=== PATIENT | female | born 1980 | race Two or more races ===

== ENCOUNTER 2018-03-28 20:46 | Emergency (ER) | payer MEDICAID ==
[~2018-03-28] VITALS: Ht 162.6 cm; Wt 61.2 kg
[2018-03-28 21:04] VITALS: BP 105/72
[2018-03-28 22:06] LABS: Basophils # (auto) 0.1 uL; Basophils % (auto) 0.6 % (0.0-2.0); Eosinophils # (auto) 0.1 uL; Eosinophils % (auto) 1.1 % (0.0-7.0); Hemoglobin 14.2 g/dL (12.2-16.2); Lymphocytes # (auto) 2.9 uL; Lymphocytes % (auto) 28.5 % (10.0-50.0); Mean Corpuscular Hemoglobin 33.6 pg (28.0-32.0); Mean Corpuscular Hgb Conc. 34.7 g/dL (32.0-36.0); Mean Corpuscular Volume 96.7 fL (80.0-100.0); Monocytes # (auto) 0.9 uL; Monocytes % (auto) 9.2 % (0.0-12.0); Neutrophils # (auto) 6.1 uL; Neutrophils % (auto) 60.6 % (37.0-80.0); Platelet Count (auto) 270 10^3/uL (140-450); Red Blood Cells 4.24 10^6/uL (4.0-5.20); Red Cell Distribution Width 12.9 % (11.8-14.3); White Blood Cell 10.1 10^3/uL (4.4-10.8)
[2018-03-28 22:18] LABS: Urine Bacteria FEW /hpf (None Seen); Urine Blood Negative /uL (Negative); Urine Mucus FEW (None Seen); Urine WBC 1 /hpf (0 - 5)
[2018-03-28 22:28] LABS: Albumin 3.6 g/dL (3.4-5.0); Anion Gap 5 (5-15); Blood Urea Nitrogen 14 mg/dL (7-18); Carbon Dioxide 27 mmol/L (21-32); Chloride 109 mmol/L (98-107); Glucose 107 mg/dL (74-106); Potassium 4.1 mmol/L (3.5-5.1); Sodium 141 mmol/L (136-145)
[2018-03-28 22:35] LABS: Alanine Aminotransferase 84 U/L (13-56); Alkaline Phosphatase 65 U/L (45-117); Aspartate Aminotransferase 42 U/L (15-37); BUN/Creatinine Ratio 17.9; Bilirubin, Total 0.4 mg/dL (0.2-1.0); GFR African American 107 mL/min; GFR Non-African American 89 mL/min; Total Protein 7.4 g/dL (6.4-8.2)
== END 2018-03-29 05:04 | disposition left against medical advice (07) ==
LOC: ER 20:49
DX: R07.89 Other chest pain (principal); R42 Dizziness and giddiness; Z53.21 Procedure and treatment not carried out due to patient leaving prior to being seen by health care provider
CPT/HCPCS: 36415; 80053; 81001; 84484; 85025; 93005

== ENCOUNTER 2018-06-15 15:14 | Emergency (ER) | payer MEDICAID ==
[~2018-06-15] VITALS: Ht 162.6 cm; Wt 65.8 kg
[~2018-06-15 15:14] MED LIST: NORPTMEDS CO
[2018-06-15 15:20] VITALS: BP 103/71
[2018-06-15 15:53] LABS: Basophils # (auto) 0.1 uL; Basophils % (auto) 0.9 % (0.0-2.0); Eosinophils # (auto) 0.1 uL; Hematocrit 43.6 % (36.0-46.0); Lymphocytes # (auto) 1.4 uL; Lymphocytes % (auto) 15.9 % (10.0-50.0); Mean Corpuscular Hemoglobin 33.1 pg (28.0-32.0); Mean Corpuscular Hgb Conc. 34.3 g/dL (32.0-36.0); Mean Corpuscular Volume 96.3 fL (80.0-100.0); Monocytes # (auto) 0.5 uL; Monocytes % (auto) 5.8 % (0.0-12.0); Neutrophils # (auto) 6.5 uL; Neutrophils % (auto) 76.4 % (37.0-80.0); Platelet Count (auto) 263 10^3/uL (140-450); Red Blood Cells 4.53 10^6/uL (4.0-5.20); Red Cell Distribution Width 12.4 % (11.8-14.3); White Blood Cell 8.5 10^3/uL (4.4-10.8)
[2018-06-15 16:12] LABS: Albumin 3.9 g/dL (3.4-5.0); Anion Gap 7 (5-15); Aspartate Aminotransferase 26 U/L (15-37); BUN/Creatinine Ratio 15.4; Blood Urea Nitrogen 12 mg/dL (7-18); Carbon Dioxide 23 mmol/L (21-32); Chloride 109 mmol/L (98-107); GFR African American 107 mL/min; GFR Non-African American 88 mL/min; Glucose 108 mg/dL (74-106); Magnesium 2.1 mg/dL (1.6-2.6); Potassium 3.8 mmol/L (3.5-5.1); Sodium 139 mmol/L (136-145)
[2018-06-15 16:17] LABS: Alanine Aminotransferase 40 U/L (13-56); Alkaline Phosphatase 56 U/L (45-117); Bilirubin, Total 0.3 mg/dL (0.2-1.0); Total Protein 7.8 g/dL (6.4-8.2)
[2018-06-15 16:43] LABS: Alcohol, Urine < 3.0 mg/dL (0-5); Amphetamine Screen, Urine NEGATIVE (NEGATIVE); Barbiturate Scree,Urine NEGATIVE (NEGATIVE); Benzodiazephine Screen, Urine NEGATIVE (NEGATIVE); Cannabinoid Screen, Urine NEGATIVE (NEGATIVE); Cocaine Screen, Urine NEGATIVE (NEGATIVE); Opiate Scree,Urine NEGATIVE (NEGATIVE); Phencyclidine Screen, Urine NEGATIVE (NEGATIVE)
== END 2018-06-15 18:48 | disposition home or self-care (01) ==
LOC: ER 15:23
DX: R07.89 Other chest pain (principal); I10 Essential (primary) hypertension
CPT/HCPCS: 36415; 71046; 80053; 80307; 83735; 84484; 85025; 93005

== ENCOUNTER 2018-07-09 08:44 | Emergency (ER) | payer MEDICAID ==
[~2018-07-09] VITALS: Ht 162.6 cm; Wt 65.8 kg
[2018-07-09 09:43] LABS: Alanine Aminotransferase 48 U/L (13-56); Albumin 3.8 g/dL (3.4-5.0); Anion Gap 8 (5-15); BUN/Creatinine Ratio 17.3; Blood Urea Nitrogen 14 mg/dL (7-18); Calcium 8.7 mg/dL (8.5-10.1); Carbon Dioxide 24 mmol/L (21-32); Chloride 106 mmol/L (98-107); GFR African American 102 mL/min; GFR Non-African American 85 mL/min; Glucose 125 mg/dL (74-106); Potassium 3.7 mmol/L (3.5-5.1); Sodium 138 mmol/L (136-145)
[2018-07-09 09:52] LABS: Alkaline Phosphatase 69 U/L (45-117); Aspartate Aminotransferase 24 U/L (15-37); Bilirubin, Total 0.4 mg/dL (0.2-1.0); Total Protein 7.5 g/dL (6.4-8.2)
[2018-07-09 10:27] LABS: Basophils # (auto) 0 uL; Basophils % (auto) 0.5 % (0.0-2.0); Eosinophils # (auto) 0.1 uL; Hematocrit 41.8 % (36.0-46.0); Lymphocytes # (auto) 1.5 uL; Lymphocytes % (auto) 21.7 % (10.0-50.0); Mean Corpuscular Hemoglobin 32.5 pg (28.0-32.0); Mean Corpuscular Hgb Conc. 33.5 g/dL (32.0-36.0); Mean Corpuscular Volume 96.8 fL (80.0-100.0); Monocytes # (auto) 0.4 uL; Monocytes % (auto) 5.2 % (0.0-12.0); Neutrophils # (auto) 4.8 uL; Neutrophils % (auto) 70.6 % (37.0-80.0); Nucleated Red Blood Cells % 0.1 %; Platelet Count (auto) 256 10^3/uL (140-450); Red Blood Cells 4.31 10^6/uL (4.0-5.20); Red Cell Distribution Width 12.4 % (11.8-14.3); White Blood Cell 6.9 10^3/uL (4.4-10.8)
[2018-07-09 10:55] VITALS: BP 106/71
== END 2018-07-09 10:36 | disposition home or self-care (01) ==
LOC: ER 08:45
DX: R07.89 Other chest pain (principal); I10 Essential (primary) hypertension
CPT/HCPCS: 36415; 71046; 80053; 84484; 85025; 93005

== ENCOUNTER 2018-07-16 11:46 | Emergency (ER) | payer MEDICAID ==
[~2018-07-16] VITALS: Ht 162.6 cm; Wt 65.3 kg
[2018-07-16 12:13] VITALS: BP 126/83
[2018-07-16 13:28] LABS: Basophils # (auto) 0.1 uL; Basophils % (auto) 0.5 % (0.0-2.0); Eosinophils # (auto) 0.1 uL; Eosinophils % (auto) 1.1 % (0.0-7.0); Hematocrit 40.3 % (36.0-46.0); Hemoglobin 13.5 g/dL (12.2-16.2); Lymphocytes # (auto) 1.3 uL; Lymphocytes % (auto) 10.8 % (10.0-50.0); Mean Corpuscular Hemoglobin 32.5 pg (28.0-32.0); Mean Corpuscular Hgb Conc. 33.5 g/dL (32.0-36.0); Mean Corpuscular Volume 97.1 fL (80.0-100.0); Monocytes # (auto) 0.6 uL; Monocytes % (auto) 4.9 % (0.0-12.0); Neutrophils # (auto) 9.6 uL; Neutrophils % (auto) 82.7 % (37.0-80.0); Platelet Count (auto) 249 10^3/uL (140-450); Red Blood Cells 4.15 10^6/uL (4.0-5.20); Red Cell Distribution Width 12.9 % (11.8-14.3); White Blood Cell 11.6 10^3/uL (4.4-10.8)
[2018-07-16 13:48] LABS: Alanine Aminotransferase 46 U/L (13-56); Albumin 3.7 g/dL (3.4-5.0); Anion Gap 3 (5-15); Aspartate Aminotransferase 25 U/L (15-37); BUN/Creatinine Ratio 12.5; Blood Urea Nitrogen 11 mg/dL (7-18); Calcium 8.6 mg/dL (8.5-10.1); Carbon Dioxide 28 mmol/L (21-32); Chloride 111 mmol/L (98-107); GFR African American 93 mL/min; GFR Non-African American 77 mL/min; Glucose 98 mg/dL (74-106); Magnesium 2.3 mg/dL (1.6-2.6); Potassium 4.2 mmol/L (3.5-5.1); Sodium 142 mmol/L (136-145)
[2018-07-16 13:53] LABS: Alkaline Phosphatase 62 U/L (45-117); Bilirubin, Total 0.3 mg/dL (0.2-1.0)
== END 2018-07-16 14:45 | disposition home or self-care (01) ==
LOC: ER 11:46
DX: F41.9 Anxiety disorder, unspecified (principal); I10 Essential (primary) hypertension; Z98.51 Tubal ligation status
CPT/HCPCS: 36415; 71045; 80053; 83735; 84484; 85025; 93005; 94761

== ENCOUNTER 2018-07-25 08:16 | Emergency (ER) | payer MEDICAID ==
[~2018-07-25] VITALS: Ht 162.6 cm; Wt 65.8 kg
[2018-07-25 08:25] VITALS: BP 108/76
[2018-07-25 08:52] LABS: Basophils # (auto) 0.1 uL; Basophils % (auto) 0.5 % (0.0-2.0); Eosinophils # (auto) 0.2 uL; Eosinophils % (auto) 1.4 % (0.0-7.0); Hematocrit 41.5 % (36.0-46.0); Hemoglobin 14.3 g/dL (12.2-16.2); Lymphocytes # (auto) 1.3 uL; Lymphocytes % (auto) 11.3 % (10.0-50.0); Mean Corpuscular Hemoglobin 33.5 pg (28.0-32.0); Mean Corpuscular Hgb Conc. 34.6 g/dL (32.0-36.0); Mean Corpuscular Volume 96.8 fL (80.0-100.0); Monocytes # (auto) 0.5 uL; Monocytes % (auto) 4.7 % (0.0-12.0); Neutrophils # (auto) 9.3 uL; Neutrophils % (auto) 82.1 % (37.0-80.0); Platelet Count (auto) 280 10^3/uL (140-450); Red Blood Cells 4.29 10^6/uL (4.0-5.20); Red Cell Distribution Width 12.8 % (11.8-14.3); White Blood Cell 11.4 10^3/uL (4.4-10.8)
[2018-07-25 09:10] LABS: Alanine Aminotransferase 70 U/L (13-56); Albumin 3.5 g/dL (3.4-5.0); Anion Gap 9 (5-15); Aspartate Aminotransferase 43 U/L (15-37); BUN/Creatinine Ratio 15.2; Blood Urea Nitrogen 12 mg/dL (7-18); Calcium 8.8 mg/dL (8.5-10.1); Carbon Dioxide 22 mmol/L (21-32); Chloride 110 mmol/L (98-107); GFR African American 105 mL/min; GFR Non-African American 87 mL/min; Glucose 102 mg/dL (74-106); Potassium 3.9 mmol/L (3.5-5.1); Sodium 141 mmol/L (136-145)
[2018-07-25 09:15] LABS: Alkaline Phosphatase 69 U/L (45-117); Bilirubin, Total 0.6 mg/dL (0.2-1.0); Total Protein 7.4 g/dL (6.4-8.2)
== END 2018-07-25 10:00 | disposition left against medical advice (07) ==
LOC: ER 08:16
DX: R07.9 Chest pain, unspecified (principal); Z53.21 Procedure and treatment not carried out due to patient leaving prior to being seen by health care provider
CPT/HCPCS: 36415; 80053; 84484; 85025; 93005

== ENCOUNTER 2018-08-10 10:47 | Emergency (ER) | payer MEDICAID ==
[~2018-08-10] VITALS: Ht 162.6 cm; Wt 65.3 kg
[2018-08-10] MEDS ORDERED: LORazepam 0.5 MG TAB PO ONE (11:15)
[2018-08-10 12:10] VITALS: BP 109/80
== END 2018-08-10 12:50 | disposition home or self-care (01) ==
LOC: ER 10:51
DX: F41.9 Anxiety disorder, unspecified (principal); I10 Essential (primary) hypertension; R42 Dizziness and giddiness; Z98.51 Tubal ligation status
CPT/HCPCS: 93005

== ENCOUNTER 2018-11-05 14:29 | Emergency (ER) | payer MEDICAID ==
[~2018-11-05] VITALS: Ht 162.6 cm; Wt 77.1 kg
[2018-11-05 14:39] VITALS: BP 143/82
== END 2018-11-05 16:15 | disposition left against medical advice (07) ==
LOC: ER 14:29
DX: F41.9 Anxiety disorder, unspecified (principal); Z53.21 Procedure and treatment not carried out due to patient leaving prior to being seen by health care provider
CPT/HCPCS: 93005

== ENCOUNTER 2019-04-13 23:20 | Emergency (ER) | payer MEDICAID ==
[~2019-04-13] VITALS: Ht 162.6 cm; Wt 71.7 kg
[2019-04-14 00:02] VITALS: BP 116/78
== END 2019-04-14 00:36 | disposition left against medical advice (07) ==
LOC: ER 23:23
DX: F41.9 Anxiety disorder, unspecified (principal); Z53.21 Procedure and treatment not carried out due to patient leaving prior to being seen by health care provider

== ENCOUNTER 2020-03-12 10:13 | Emergency (ER) | payer MEDICAID ==
[~2020-03-12] VITALS: Ht 162.6 cm; Wt 68.0 kg
[2020-03-12 10:15] VITALS: BP 130/89
[2020-03-12] MEDS ORDERED: LORazepam 2MG/ML-1ML VIAL IV ONE (10:30)
[2020-03-12] MEDS ORDERED: ASPirin 81 mg TAB PO ONE (10:30)
[2020-03-12 10:54] LABS: Basophils # (auto) 0 10 ^3/uL (0-0.2); Basophils % (auto) 0.4 % (0.0-2.0); Eosinophils # (auto) 0 10 ^3/uL (0-0.8); Eosinophils % (auto) 0.1 % (0.0-7.0); Hematocrit 38.5 % (36.0-46.0); Hemoglobin 13.4 g/dL (12.2-16.2); Lymphocytes # (auto) 0.9 10 ^3/uL (0.4-5.4); Lymphocytes % (auto) 12.3 % (10.0-50.0); Mean Corpuscular Hemoglobin 33.4 pg (28.0-32.0); Mean Corpuscular Hgb Conc. 34.8 g/dL (32.0-36.0); Monocytes # (auto) 0.3 10 ^3/uL (0-1.3); Monocytes % (auto) 3.4 % (0.0-12.0); Neutrophils # (auto) 6.3 10 ^3/uL (1.6-8.6); Neutrophils % (auto) 83.8 % (37.0-80.0); Platelet Count (auto) 297 10^3/uL (140-450); Red Blood Cells 4.02 10^6/uL (4.0-5.20); Red Cell Distribution Width 12.6 % (11.8-14.3); White Blood Cell 7.6 10^3/uL (4.4-10.8)
[2020-03-12 12:00] LABS: Chloride 109 mmol/L (98-107); Potassium 3.5 mmol/L (3.5-5.1); Sodium 138 mmol/L (136-145)
[2020-03-12 12:10] LABS: Alanine Aminotransferase 39 U/L (13-56); Albumin 3.7 g/dL (3.4-5.0); Alkaline Phosphatase 62 U/L (45-117); Anion Gap 4 (5-15); Aspartate Aminotransferase 23 U/L (15-37); BUN/Creatinine Ratio 12.3; Bilirubin, Total 0.5 mg/dL (0.2-1.0); Blood Urea Nitrogen 10 mg/dL (7-18); Calcium 8.7 mg/dL (8.5-10.1); Carbon Dioxide 25 mmol/L (21-32); GFR African American 102 mL/min; GFR Non-African American 84 mL/min; Glucose 81 mg/dL (74-106); Total Protein 7.5 g/dL (6.4-8.2)
== END 2020-03-12 14:11 | disposition left against medical advice (07) ==
LOC: ER 10:13
DX: R07.89 Other chest pain (principal); F41.9 Anxiety disorder, unspecified; I10 Essential (primary) hypertension; Z98.51 Tubal ligation status
CPT/HCPCS: 36415; 71045; 80053; 84484; 85025

== ENCOUNTER 2020-05-02 08:14 | Emergency (ER) | payer MEDICAID ==
[~2020-05-02] VITALS: Ht 162.6 cm; Wt 62.6 kg
[2020-05-02 08:37] LABS: Basophils # (auto) 0 10 ^3/uL (0-0.2); Basophils % (auto) 0.4 % (0.0-2.0); Eosinophils # (auto) 0 10 ^3/uL (0-0.8); Eosinophils % (auto) 0.5 % (0.0-7.0); Hematocrit 38.8 % (36.0-46.0); Hemoglobin 13.4 g/dL (12.2-16.2); Lymphocytes # (auto) 1.2 10 ^3/uL (0.4-5.4); Mean Corpuscular Hemoglobin 33.3 pg (28.0-32.0); Mean Corpuscular Hgb Conc. 34.5 g/dL (32.0-36.0); Mean Corpuscular Volume 96.5 fL (80.0-100.0); Monocytes # (auto) 0.4 10 ^3/uL (0-1.3); Monocytes % (auto) 5.8 % (0.0-12.0); Neutrophils # (auto) 5.9 10 ^3/uL (1.6-8.6); Neutrophils % (auto) 77.3 % (37.0-80.0); Nucleated Red Blood Cells % 0.1 %; Platelet Count (auto) 244 10^3/uL (140-450); Red Blood Cells 4.02 10^6/uL (4.0-5.20); Red Cell Distribution Width 12.3 % (11.8-14.3); White Blood Cell 7.6 10^3/uL (4.4-10.8)
[2020-05-02 08:57] LABS: Albumin 3.4 g/dL (3.4-5.0); Calcium 8.6 mg/dL (8.5-10.1); Potassium 3.7 mmol/L (3.5-5.1)
[2020-05-02 09:01] LABS: BUN/Creatinine Ratio 16.3; Bilirubin, Total 0.4 mg/dL (0.2-1.0)
[2020-05-02 09:30] LABS: Urine Bacteria NONE SEEN /hpf (None Seen); Urine Blood 3+ /uL (Negative); Urine Budding Yeast MODERATE /hpf (None Seen); Urine Sperm PRESENT /hpf (None Seen); Urine WBC 1632 /hpf (0 - 5); Urine WBC Clumps PRESENT /hpf (None Seen)
[2020-05-02] MEDS: SODIUM CHLORIDE 0.9% 1,000 ML IV ONE (09:30)
[2020-05-02] MEDS: SODIUM CHLORIDE 0.9% 500 ML IVB ONE (09:33)
[2020-05-02] MEDS: cefTRIAXone 1GM/50ML D5W 50 ML IV ONE (10:30)
[2020-05-02 12:00] VITALS: BP 115/67
== END 2020-05-02 12:51 | disposition home or self-care (01) ==
LOC: ER 08:14
DX: N93.9 Abnormal uterine and vaginal bleeding, unspecified (principal); N39.0 Urinary tract infection, site not specified; F41.9 Anxiety disorder, unspecified; Z98.890 Other specified postprocedural states
CPT/HCPCS: 36415; 76856; 80053; 81001; 84702; 85025; 96361; 96365; 99284; J0696

== ENCOUNTER 2020-09-02 10:51 | Emergency (ER) | payer MEDICAID ==
[~2020-09-02] VITALS: Ht 162.6 cm; Wt 66.2 kg
[2020-09-02 11:21] VITALS: BP 102/77
== END 2020-09-02 11:28 | disposition home or self-care (01) ==
LOC: ER 10:51
DX: F41.9 Anxiety disorder, unspecified (principal); R07.89 Other chest pain
CPT/HCPCS: 93005

== ENCOUNTER 2020-10-16 09:43 | Emergency (ER) | payer MEDICAID ==
[~2020-10-16] VITALS: Ht 162.6 cm; Wt 65.8 kg
[2020-10-16 11:20] VITALS: BP 104/67
== END 2020-10-16 11:16 | disposition home or self-care (01) ==
LOC: ER 09:43
DX: F41.9 Anxiety disorder, unspecified (principal)

== ENCOUNTER → 2020-10-25 | Emergency (ER) | payer MEDICAID ==
[~2020-10-25] VITALS: Ht 162.6 cm; Wt 64.9 kg
[2020-10-25 20:27] VITALS: BP 114/78
[2020-10-25 22:30] LABS: Basophils # (auto) 0.1 10 ^3/uL (0-0.2); Basophils % (auto) 0.9 % (0.0-2.0); Eosinophils # (auto) 0.1 10 ^3/uL (0-0.8); Eosinophils % (auto) 1.4 % (0.0-7.0); Hematocrit 38.7 % (36.0-46.0); Hemoglobin 13.2 g/dL (12.2-16.2); Lymphocytes # (auto) 2.7 10 ^3/uL (0.4-5.4); Lymphocytes % (auto) 36.2 % (10.0-50.0); Mean Corpuscular Hemoglobin 32.2 pg (28.0-32.0); Mean Corpuscular Hgb Conc. 34.2 g/dL (32.0-36.0); Monocytes # (auto) 0.6 10 ^3/uL (0-1.3); Monocytes % (auto) 7.8 % (0.0-12.0); Neutrophils % (auto) 53.7 % (37.0-80.0); Nucleated Red Blood Cells % 0.1 %; Red Blood Cells 4.11 10^6/uL (4.0-5.20); Red Cell Distribution Width 13.9 % (11.8-14.3); White Blood Cell 7.5 10^3/uL (4.4-10.8)
[2020-10-25 22:51] LABS: Albumin 3.6 g/dL (3.4-5.0); Calcium 8.7 mg/dL (8.5-10.1)
[2020-10-25 23:00] LABS: BUN/Creatinine Ratio 16.5; Bilirubin, Total 0.6 mg/dL (0.2-1.0); Total Protein 7.3 g/dL (6.4-8.2)
[2020-10-26 03:19] LABS: Urine Bacteria NONE SEEN /hpf (None Seen); Urine Blood 2+ /uL (Negative); Urine Mucus FEW (None Seen); Urine Specific Gravity 1.018 (1.001-1.035); Urine WBC 1 /hpf (0 - 5)
== END | disposition left against medical advice (07) ==
LOC: ER 20:24
DX: R10.30 Lower abdominal pain, unspecified (principal); Z53.21 Procedure and treatment not carried out due to patient leaving prior to being seen by health care provider
CPT/HCPCS: 36415; 80053; 81001; 85025

== ENCOUNTER 2020-11-06 09:58 | Emergency (ER) | payer MEDICAID ==
[~2020-11-06] VITALS: Ht 162.6 cm; Wt 64.9 kg
[2020-11-06] MEDS ORDERED: IBUPROFEN 600 MG TAB PO ONE (11:00)
[2020-11-06 11:40] LABS: Basophils # (auto) 0 10 ^3/uL (0-0.2); Basophils % (auto) 0.5 % (0.0-2.0); Eosinophils # (auto) 0 10 ^3/uL (0-0.8); Eosinophils % (auto) 0.3 % (0.0-7.0); Hematocrit 38.5 % (36.0-46.0); Hemoglobin 13.2 g/dL (12.2-16.2); Lymphocytes # (auto) 1.2 10 ^3/uL (0.4-5.4); Lymphocytes % (auto) 18.3 % (10.0-50.0); Mean Corpuscular Hemoglobin 32.1 pg (28.0-32.0); Mean Corpuscular Hgb Conc. 34.2 g/dL (32.0-36.0); Monocytes # (auto) 0.4 10 ^3/uL (0-1.3); Monocytes % (auto) 6.3 % (0.0-12.0); Neutrophils # (auto) 4.9 10 ^3/uL (1.6-8.6); Neutrophils % (auto) 74.6 % (37.0-80.0); Red Blood Cells 4.09 10^6/uL (4.0-5.20); Red Cell Distribution Width 13.6 % (11.8-14.3); White Blood Cell 6.5 10^3/uL (4.4-10.8)
[2020-11-06 13:09] LABS: Chloride 106 mmol/L (98-107); Sodium 137 mmol/L (136-145)
[2020-11-06 13:14] LABS: Alanine Aminotransferase 25 U/L (13-56); Albumin 3.6 g/dL (3.4-5.0); Anion Gap 7 (5-15); Aspartate Aminotransferase 14 U/L (15-37); BUN/Creatinine Ratio 11.6; Blood Urea Nitrogen 10 mg/dL (7-18); Calcium 8.6 mg/dL (8.5-10.1); Carbon Dioxide 24 mmol/L (21-32); GFR African American 94 mL/min; GFR Non-African American 78 mL/min; Glucose 80 mg/dL (74-106)
[2020-11-06 13:19] LABS: Alkaline Phosphatase 52 U/L (45-117); Bilirubin, Total 0.9 mg/dL (0.2-1.0); Total Protein 7.5 g/dL (6.4-8.2)
[2020-11-06 16:00] VITALS: BP 108/73
== END 2020-11-06 16:21 | disposition home or self-care (01) ==
LOC: ER 09:58
DX: R07.89 Other chest pain (principal); Z79.899 Other long term (current) drug therapy; Z88.0 Allergy status to penicillin
CPT/HCPCS: 36415; 71045; 80053; 81025; 84443; 84484; 85025; 93005

== ENCOUNTER 2021-01-01 12:04 | Emergency (ER) | payer MEDICAID ==
[~2021-01-01] VITALS: Ht 162.6 cm; Wt 62.1 kg
[2021-01-01 15:21] LABS: Basophils # (auto) 0.1 10 ^3/uL (0-0.2); Basophils % (auto) 0.6 % (0.0-2.0); Eosinophils # (auto) 0 10 ^3/uL (0-0.8); Eosinophils % (auto) 0.2 % (0.0-7.0); Hematocrit 42.8 % (36.0-46.0); Hemoglobin 14.4 g/dL (12.2-16.2); Lymphocytes # (auto) 2.2 10 ^3/uL (0.4-5.4); Lymphocytes % (auto) 21.8 % (10.0-50.0); Mean Corpuscular Hemoglobin 31.8 pg (28.0-32.0); Mean Corpuscular Hgb Conc. 33.7 g/dL (32.0-36.0); Mean Corpuscular Volume 94.3 fL (80.0-100.0); Monocytes # (auto) 0.6 10 ^3/uL (0-1.3); Monocytes % (auto) 5.7 % (0.0-12.0); Neutrophils # (auto) 7.2 10 ^3/uL (1.6-8.6); Neutrophils % (auto) 71.7 % (37.0-80.0); Nucleated Red Blood Cells % 0.1 %; Red Blood Cells 4.53 10^6/uL (4.0-5.20); Red Cell Distribution Width 12.7 % (11.8-14.3)
[2021-01-01 15:38] LABS: Albumin 3.9 g/dL (3.4-5.0); Calcium 9.2 mg/dL (8.5-10.1); Potassium 3.7 mmol/L (3.5-5.1)
[2021-01-01 15:42] LABS: BUN/Creatinine Ratio 14.5; Bilirubin, Total 0.5 mg/dL (0.2-1.0); Total Protein 8.3 g/dL (6.4-8.2)
[2021-01-01] MEDS ORDERED: PERCOT PO (18:10)
[2021-01-01 19:59] VITALS: BP 94/62
== END 2021-01-01 18:00 | disposition left against medical advice (07) ==
LOC: ER 12:04
DX: K80.10 Calculus of gallbladder with chronic cholecystitis without obstruction (principal); Z88.0 Allergy status to penicillin; Z98.890 Other specified postprocedural states
CPT/HCPCS: 36415; 74176; 80053; 85025

== ENCOUNTER 2021-01-12 06:23 | Emergency (ER) | payer MEDICAID ==
[~2021-01-12] VITALS: Ht 162.6 cm; Wt 61.2 kg
[~2021-01-12 06:23] MED LIST changes: +PERCOT PO
[2021-01-12 07:45] LABS: Basophils # (auto) 0 10 ^3/uL (0-0.2); Basophils % (auto) 0.3 % (0.0-2.0); Eosinophils # (auto) 0 10 ^3/uL (0-0.8); Eosinophils % (auto) 0.3 % (0.0-7.0); Hematocrit 36.9 % (36.0-46.0); Hemoglobin 12.3 g/dL (12.2-16.2); Lymphocytes # (auto) 1.3 10 ^3/uL (0.4-5.4); Lymphocytes % (auto) 14.3 % (10.0-50.0); Mean Corpuscular Hemoglobin 31.5 pg (28.0-32.0); Mean Corpuscular Hgb Conc. 33.4 g/dL (32.0-36.0); Mean Corpuscular Volume 94.2 fL (80.0-100.0); Monocytes # (auto) 0.6 10 ^3/uL (0-1.3); Neutrophils # (auto) 7.4 10 ^3/uL (1.6-8.6); Neutrophils % (auto) 79.1 % (37.0-80.0); Nucleated Red Blood Cells % 0.1 %; Red Blood Cells 3.91 10^6/uL (4.0-5.20); Red Cell Distribution Width 13.1 % (11.8-14.3); White Blood Cell 9.3 10^3/uL (4.4-10.8)
[2021-01-12 08:03] LABS: Calcium 8.2 mg/dL (8.5-10.1); Potassium 3.9 mmol/L (3.5-5.1)
[2021-01-12 08:08] LABS: BUN/Creatinine Ratio 13.8; Bilirubin, Total 0.6 mg/dL (0.2-1.0); Total Protein 6.6 g/dL (6.4-8.2)
[2021-01-12 09:55] LABS: Urine Bacteria NONE SEEN /hpf (None Seen); Urine Blood 3+ /uL (Negative); Urine Hyaline Cast FEW /lpf (0 - 2); Urine Mucus FEW (None Seen); Urine Specific Gravity 1.026 (1.001-1.035); Urine WBC 4 /hpf (0 - 5)
[2021-01-12 10:55] VITALS: BP 112/87
== END 2021-01-12 10:56 | disposition home or self-care (01) ==
LOC: ER 06:23
DX: R07.89 Other chest pain (principal); F41.8 Other specified anxiety disorders; T40.2X5A Adverse effect of other opioids, initial encounter; Z90.49 Acquired absence of other specified parts of digestive tract; Z79.899 Other long term (current) drug therapy; Y92.89 Other specified places as the place of occurrence of the external cause
CPT/HCPCS: 36415; 71046; 80053; 81001; 83880; 84484; 85025; 93005

== ENCOUNTER 2021-04-06 22:55 | Emergency (ER) | payer MEDICAID ==
[~2021-04-06] VITALS: Ht 162.6 cm; Wt 59.9 kg
[2021-04-06 23:35] LABS: Urine Bacteria FEW /hpf (None Seen); Urine Blood 3+ /uL (Negative); Urine Specific Gravity 1.007 (1.001-1.035); Urine WBC 1 /hpf (0 - 5)
[2021-04-06 23:59] LABS: Basophils # (auto) 0 10 ^3/uL (0-0.2); Basophils % (auto) 0.5 % (0.0-2.0); Eosinophils # (auto) 0.1 10 ^3/uL (0-0.8); Hematocrit 39.1 % (36.0-46.0); Hemoglobin 13.1 g/dL (12.2-16.2); Lymphocytes % (auto) 29.9 % (10.0-50.0); Mean Corpuscular Hemoglobin 32.1 pg (28.0-32.0); Mean Corpuscular Hgb Conc. 33.7 g/dL (32.0-36.0); Mean Corpuscular Volume 95.3 fL (80.0-100.0); Monocytes # (auto) 0.4 10 ^3/uL (0-1.3); Monocytes % (auto) 5.7 % (0.0-12.0); Neutrophils # (auto) 4.1 10 ^3/uL (1.6-8.6); Neutrophils % (auto) 62.9 % (37.0-80.0); Red Cell Distribution Width 13.6 % (11.8-14.3); White Blood Cell 6.6 10^3/uL (4.4-10.8)
[2021-04-07 00:25] LABS: Albumin 3.7 g/dL (3.4-5.0); BUN/Creatinine Ratio 17.7; Calcium 8.8 mg/dL (8.5-10.1); Potassium 3.7 mmol/L (3.5-5.1)
[2021-04-07 00:27] LABS: Bilirubin, Total 0.2 mg/dL (0.2-1.0); Total Protein 7.5 g/dL (6.4-8.2)
[2021-04-07 06:10] VITALS: BP 127/82
== END 2021-04-07 06:14 | disposition home or self-care (01) ==
LOC: ER 22:55
DX: N93.9 Abnormal uterine and vaginal bleeding, unspecified (principal); R53.1 Weakness; Z90.49 Acquired absence of other specified parts of digestive tract; Z79.899 Other long term (current) drug therapy; Z88.0 Allergy status to penicillin
CPT/HCPCS: 36415; 76830; 76856; 80053; 81001; 84702; 85025

== ENCOUNTER 2021-12-13 10:45 | Emergency (ER) | payer MEDICAID, OTHER ==
[~2021-12-13] VITALS: Ht 162.6 cm; Wt 66.0 kg
[2021-12-13 11:13] LABS: Basophils # (auto) 0 10 ^3/uL (0-0.2); Basophils % (auto) 0.6 % (0.0-2.0); Eosinophils # (auto) 0 10 ^3/uL (0-0.8); Eosinophils % (auto) 0.8 % (0.0-7.0); Hemoglobin 13.4 g/dL (12.2-16.2); Lymphocytes # (auto) 1.3 10 ^3/uL (0.4-5.4); Lymphocytes % (auto) 21.8 % (10.0-50.0); Mean Corpuscular Hemoglobin 32.9 pg (28.0-32.0); Mean Corpuscular Hgb Conc. 33.5 g/dL (32.0-36.0); Mean Corpuscular Volume 98.4 fL (80.0-100.0); Monocytes # (auto) 0.3 10 ^3/uL (0-1.3); Monocytes % (auto) 5.4 % (0.0-12.0); Neutrophils # (auto) 4.4 10 ^3/uL (1.6-8.6); Neutrophils % (auto) 71.4 % (37.0-80.0); Red Blood Cells 4.06 10^6/uL (4.0-5.20); Red Cell Distribution Width 12.4 % (11.8-14.3); White Blood Cell 6.1 10^3/uL (4.4-10.8)
[2021-12-13 11:39] LABS: Albumin 3.4 g/dL (3.4-5.0)
[2021-12-13 11:50] LABS: BUN/Creatinine Ratio 17.4; Bilirubin, Total 0.4 mg/dL (0.2-1.0); Calcium 8.8 mg/dL (8.5-10.1); Total Protein 6.8 g/dL (6.4-8.2)
[2021-12-13] MEDS ORDERED: IOHEXOL 300 MG/ML 100ML BOTTLE IJ ONE (12:50)
[2021-12-13 14:40] VITALS: BP 124/67
== END 2021-12-13 14:44 | disposition home or self-care (01) ==
LOC: ER 10:45 → EDBD 10:45 → ER 14:39
DX: S60.212A Contusion of left wrist, initial encounter (principal); S80.01XA Contusion of right knee, initial encounter; R07.89 Other chest pain; M54.2 Cervicalgia; Z90.49 Acquired absence of other specified parts of digestive tract; Z79.899 Other long term (current) drug therapy; Z88.0 Allergy status to penicillin; V89.2XXA Person injured in unspecified motor-vehicle accident, traffic, initial encounter; Y93.89 Activity, other specified; Y92.89 Other specified places as the place of occurrence of the external cause; Y99.8 Other external cause status
CPT/HCPCS: 36415; 72125; 73110; 73562; 74177; 80053; 84484; 85025; 93005; 99285; Q9967

== ENCOUNTER 2022-10-29 07:15 | Emergency (ER) | payer MEDICAID ==
[~2022-10-29] VITALS: Ht 162.6 cm; Wt 62.1 kg
[2022-10-29 08:33] LABS: Urine Bacteria NONE SEEN /hpf (None Seen); Urine Blood Negative /uL (Negative); Urine Clarity Clear (Clear); Urine Protein, UAD Negative (Negative); Urine Specific Gravity 1.013 (1.001-1.035); Urine Urobilinogen Normal (Negative); Urine WBC 1 /hpf (0 - 5); Urine pH 5.5 (5.0-8.0)
[2022-10-29 08:34] LABS: Urine Color Straw (Yellow)
[2022-10-29 08:35] LABS: Basophils # (auto) 0 10 ^3/uL (0-0.2); Basophils % (auto) 0.5 % (0.0-2.0); Eosinophils # (auto) 0 10 ^3/uL (0-0.8); Eosinophils % (auto) 0.5 % (0.0-7.0); Hematocrit 40.4 % (36.0-46.0); Hemoglobin 13.5 g/dL (12.2-16.2); Lymphocytes # (auto) 1.2 10 ^3/uL (0.4-5.4); Lymphocytes % (auto) 24.2 % (10.0-50.0); Mean Corpuscular Hemoglobin 32.5 pg (28.0-32.0); Mean Corpuscular Hgb Conc. 33.3 g/dL (32.0-36.0); Mean Corpuscular Volume 97.6 fL (80.0-100.0); Monocytes # (auto) 0.3 10 ^3/uL (0-1.3); Monocytes % (auto) 5.7 % (0.0-12.0); Neutrophils # (auto) 3.4 10 ^3/uL (1.6-8.6); Neutrophils % (auto) 69.1 % (37.0-80.0); Nucleated Red Blood Cells % 0.1 %; Red Blood Cells 4.14 10^6/uL (4.0-5.20); Red Cell Distribution Width 12.2 % (11.8-14.3)
[2022-10-29 08:52] LABS: Alanine Aminotransferase 32 U/L (7-40); Albumin 4.4 g/dL (3.2-4.8); Alkaline Phosphatase 61 U/L (46-116); Anion Gap 6.7 (5-15); Aspartate Aminotransferase 22 U/L (13-40); BUN/Creatinine Ratio 12.8 (10.0-20.0); Bilirubin, Total 0.8 mg/dL (0.2-1.0); Blood Urea Nitrogen 10 mg/dL (9-23); Calcium 9.3 mg/dL (8.5-10.1); Carbon Dioxide 27.3 mmol/L (20-30); Chloride 106 mmol/L (98-107); Glucose 91 mg/dL (74-106); Potassium 3.5 mmol/L (3.5-5.1); Sodium 140 mmol/L (136-145); Total Protein 7.1 g/dL (5.7-8.2)
[2022-10-29 13:45] VITALS: BP 105/70; PULSE 67; RESP 98; O2SAT 98
== END 2022-10-29 13:51 | disposition home or self-care (01) ==
LOC: ER 07:15
DX: R10.2 Pelvic and perineal pain (principal); F41.9 Anxiety disorder, unspecified; Z98.890 Other specified postprocedural states; Z88.0 Allergy status to penicillin; Z90.49 Acquired absence of other specified parts of digestive tract
CPT/HCPCS: 36415; 74177; 76830; 76856; 80053; 81001; 81025; 84702; 85025

== ENCOUNTER 2023-05-01 09:46 | Emergency (ER) | payer MEDICAID ==
[~2023-05-01] VITALS: Ht 165.1 cm; Wt 63.2 kg
[2023-05-01 10:31] VITALS: PULSE 70; RESP 19; TEMP 98.5; O2SAT 98
[2023-05-01 10:35] LABS: Chloride 106 mmol/L (98-107); Potassium 3.9 mmol/L (3.5-5.1); Sodium 140 mmol/L (136-145)
[2023-05-01 10:36] LABS: Anion Gap 7 (5-15); Carbon Dioxide 27 mmol/L (20-30)
[2023-05-01 10:37] LABS: Calcium 9.3 mg/dL (8.7-10.4)
[2023-05-01 10:38] LABS: Basophils # (auto) 0 10 ^3/uL (0-0.2); Basophils % (auto) 0.7 % (0.0-2.0); Eosinophils # (auto) 0 10 ^3/uL (0-0.8); Eosinophils % (auto) 0.3 % (0.0-7.0); Hematocrit 38.8 % (36.0-46.0); Lymphocytes # (auto) 1.2 10 ^3/uL (0.4-5.4); Mean Corpuscular Hemoglobin 32.9 pg (28.0-32.0); Mean Corpuscular Hgb Conc. 33.6 g/dL (32.0-36.0); Monocytes # (auto) 0.3 10 ^3/uL (0-1.3); Monocytes % (auto) 4.9 % (0.0-12.0); Neutrophils # (auto) 4.5 10 ^3/uL (1.6-8.6); Neutrophils % (auto) 74.1 % (37.0-80.0); Nucleated Red Blood Cells % 0.1 %; Red Blood Cells 3.96 10^6/uL (4.0-5.20); Red Cell Distribution Width 12.6 % (11.8-14.3)
[2023-05-01 10:41] LABS: Glucose 89 mg/dL (74-106)
[2023-05-01 10:42] LABS: BUN/Creatinine Ratio 17.2 (10.0-20.0); Blood Urea Nitrogen 11 mg/dL (9-23)
[2023-05-01 11:35] VITALS: BP 106/72; PULSE 96; RESP 19; O2SAT 96
== END 2023-05-01 11:39 | disposition home or self-care (01) ==
LOC: ER 09:46
DX: R07.89 Other chest pain (principal); F41.9 Anxiety disorder, unspecified; K80.20 Calculus of gallbladder without cholecystitis without obstruction; Z98.890 Other specified postprocedural states; Z79.899 Other long term (current) drug therapy; Z88.0 Allergy status to penicillin
CPT/HCPCS: 36415; 71046; 80048; 83735; 84484; 85025; 85379; 93005